=== PATIENT | male | born 1960 | race Hispanic/Latino ===

== ENCOUNTER 2017-02-07 00:35 | Emergency (ER) | payer MEDICARE, MEDICAID ==
[~2017-02-07] VITALS: Ht 177.8 cm; Wt 95.5 kg
[~2017-02-07 00:35] MED LIST: ASPI-628 PO; ATOR10TA66 PO; BACL10TA PO; CHOL500050 PO; CLOP75TA3 PO; DULO60CA42 PO; GABA-502 PO; INSLIS SUBQ; INSU100V7 SUBQ; LISI10TA2 PO; LORA0.5T PO; NAPR500T PO; OMEP-113 PO
[2017-02-07 00:39] VITALS: BP 122/71; PULSE 80; RESP 18; O2SAT 98
--- NOTE | 2017-02-07 02:03 | ED.REPORT ---
HPI-Dyspnea / Wheezing Date of Service Feb 07, 2017 ED Provider: Judd Aguilar DO A 56 year old male with a history of type II diabetes, stage III chronic kidney disease secondary to diabetes, hypertension and TIA presents to the ED complaining of a cough. The cough has been present for four days and is progressively worsening. The pt began experiencing lightheadedness, shortness of breath, neck pain, nausea and "spinning dizziness" tonight in addition to diaphoresis and rhinorrhea that began four hours ago. He also complains of bilateral rib pain secondary to coughing, though he denies neck stiffness, fever, abdominal pain, diarrhea, vomiting, syncope or falls. The pt has no history of asthma, COPD or smoking. Nursing Notes Stated Complaint: UNCONTROLLED COUGH,DIZZINESS Chief Complaint: FLU/Cold Symptoms Nursing Notes Reviewed: Yes Allergies: Coded Allergies: No Known Allergies (Verified Allergy, Unknown, 02/07/17) Scheduled Aspirin (Aspir 81) 81 Mg Tablet.dr 81 MG PO DAILY Atorvastatin Calcium (Atorvastatin Calcium) 10 Mg Tablet 10 MG PO HS Benzonatate (Benzonatate) 200 Mg Capsule 200 MG PO TID Cholecalciferol (Vitamin D3) (Vitamin D3) 50,000 Unit Capsule 50,000 UNIT PO QW Clopidogrel Bisulfate (Plavix) 75 Mg Tablet 75 MG PO DAILY Duloxetine (Cymbalta) 60 Mg Capsule.dr 60 MG PO HS Gabapentin (Gabapentin) 300 Mg Capsule 900 MG PO TID Insulin Glargine (Lantus U100 Insulin Vial) 100 Unit/Ml Vial 35 UNIT SUBQ QPM- INSULIN Insulin Human Lispro (HumaLOG U100 Insulin Vial) 100 Unit/Ml Unit Unknown Dose SUBQ TID-INSULIN Blood Sugar Lispro Correction <151 0 units 151-175 1 unit 176-200 2 units 201-225 3 units 226-250 4 units 251-275 5 units 276-300 6 units 301-325 7 units 326-350 8 units 351-375 9 units 376-400 10 units >400 12 units Check blood sugars before meals and at bedtime. Use correction factor only before meals. Lisinopril (Lisinopril) 10 Mg Tablet 10 MG PO DAILY Omeprazole Magnesium (Omeprazole) 20 Mg Capsule.dr 20 MG PO AC Scheduled PRN Baclofen (Baclofen) 10 Mg Tablet 10 MG PO TID PRN PRN For Pain Lorazepam (Lorazepam) 0.5 Mg Tablet 0.5 MG PO TID PRN PRN For Insomnia Naproxen (Naprosyn) 500 Mg Tablet 500 MG PO BID PRN PRN For Pain General Time Seen by MD: 01:31 Chief Complaint Cough Hx Obtained From: Patient Arrived By: Walk-in Sudden in Onset?: No Onset Occurred: 4 days ago Symptom Duration: Since onset Recent Healthcare: No recent doctor visit, No recent hospitalization Similar Sx Previous: No Past Medical History Past Medical History 1. Insulin-dependent type II diabetes mellitus. Neuropathy, nephropathy, and retinopathy. 2. Dyslipidemia, uncontrolled 3. Chronic pain 4. Insomnia 5. Stage III chronic kidney disease secondary to diabetes 6. Hypertension 7. TIA Past Surgical History bilateral foot surgery s/p fractures. Smoking History Never Smoker Social History Alcohol Use: Denies alcohol use Drug Use: Denies drug use Other Social History: Good social support Ambulatory Status Independent Review of Systems Review of Systems Note: rib pain secondary to cough denies neck stiffness Respiratory: Reports: Non-productive cough, Shortness of breath Cardiovascular: Denies: Chest pain Musculoskeletal: Reports: Neck pain, Denies: Back pain Skin: Reports Diaphoresis, Denies Rash Allergy / Immune: Reports: Rhinorrhea Complete sys rev & neg: except as marked. GI: Reports: Nausea, Denies: Abdominal pain, Diarrhea, Vomiting Neurologic: Reports: Dizziness, Lightheaded, Denies: Syncope Physical Exam Initial Vital Signs Vital Signs (First) Date Time Temp Pulse Resp B/P Pulse Ox O2 Delivery O2 Flow Rate FiO2 02/07/17 00:39 36.4 80 18 122/71 98 Room Air Initial VS: Reviewed General/Constitutional: Awake, Alert Neck: Atraumatic, Supple, Full range of motion Respiratory / Chest: Atraumatic, Breath sounds = bilat coarse wheeze active cough Cardiovascular: Heart rate NL, Regular rhythm, Heart sounds NL ENT: Atraumatic, Airway patent, Mucous membranes moist Abdomen: Atraumatic, Soft, Non-tender Back: Atraumatic, Full range of motion Lower Extremity / Pelvis / MS: Atraumatic, Full range of motion Skin: Atraumatic, Color NL, No rash, Warm diaphoretic Neurologic: Oriented X3, Speech NL, No motor deficits, No sensory deficits Head / Eyes: Atraumatic, Normocephalic, PERRL, EOMI Upper Extremity / MS: Atraumatic, Full range of motion Psychiatric: Affect NL, Mood NL Interpretation & Diagnostics Lab Results Interpretation Result Diagram: 02/07/17 0250 02/07/17 0250 Test 02/07/17 02:50 White Blood Count 11.2th/mm3 (3.8-10.1) Red Blood Count 5.16mil/mm3 (4.40-5.80) Hemoglobin 14.7g/dL (13.8-17.2) Hematocrit 42.2% (41.0-50.0) Mean Corpuscular Volume 81.8fL (81-100) Mean Corpuscular Hemoglobin 28.5pg (27.0-35.0) Mean Corpuscular Hemoglobin Concent 34.8% (32.0-37.0) Red Cell Distribution Width 13.2% (12.3-15.4) Platelet Count 214bil/L (150-400) Neutrophils (%) (Auto) 68.8% (40-74) Lymphocytes (%) (Auto) 15.3% (14-46) Monocytes (%) (Auto) 6.6% (4-12) Eosinophils (%) (Auto) 8.6% (0-5) Basophils (%) (Auto) 0.3% (0-3) D-Dimer < 0.50mg/L FEU (<0.50) Sodium Level 136mEq/L (134-144) Potassium Level 4.2mEq/L (3.5-5.2) Chloride Level 100mEq/L (97-108) Carbon Dioxide Level 20mmol/L (18-29) Blood Urea Nitrogen 28mg/dL (6-24) Creatinine 1.86mg/dL (0.76-1.27) Estimat Glomerular Filtration Rate 40mL/min (>59) Glucose Level 388mg/dL (60-99) Calcium Level 8.3mg/dL (8.5-10.1) Total Bilirubin 0.4mg/dL (0.0-1.2) Aspartate Amino Transf (AST/SGOT) 16U/L (0-50) Alanine Aminotransferase (ALT/SGPT) 18U/L (0-44) Alkaline Phosphatase 120U/L (25-150) Troponin T 0.010ug/L (0.0-0.011) Pro-B-Type Natriuretic Peptide 167.5pg/mL (0-121) Total Protein 6.4g/dL (6.4-8.4) Albumin 3.5g/dL (3.4-5.0) Hold Ramsey Top Tube Received (Received) Pulse Oximetry Interpretation Pulse Oximetry Interpretation: 98% on room air Pulse Oximetry: Pulse Ox normal ECG Interpretation ECG Interpretation: normal sinus rhythm with a rate of 71 no ischemia Time: 02:34 Interpreted by: ED physician X-Ray Chest Interpretation Chest Xray Interpretation: no lobar infiltrates inc bronchiole markings consistent with bronchiolitis Interpretation / Wet Read by: Wet read ED physician Re-Eval/Medical Decision Med Decision/Clinical Course 56-year-old male with severe cough interfering with sleep was initially evaluated by Dr. Aguilar chest x-ray showed no evidence of pneumonia or pneumothorax. Troponin and d-dimer were both negative. He got very good relief of his cough with Tessalon, [employer] prescription that was written for him. He was also given a small prepack of Lortab elixir for cough interfering with sleep. He was given azithromycin on the chance that this an atypical bacterial bronchitis or pertussis (doubtful). Source of Hx: Old records Re-Evaluation/Progress : Time of Eval: 04:27 Re-Evaluation/Progress Note: Rechecked pt. Discussed lab results, imaging results, diagnosis and plan to discharge. Pt understands and agrees with the plan. F/U instruction and RTER warning given. All questions addressed. Counseled Regarding: Diagnosis, Lab results, Need for follow-up, When/why to return to ED Discharge & Departure Shift Change Sign-Out Patient Care Transferred: Yes Discussed Complaint(s): Yes Laboratory Evaluation: Ordered, not yet done Imaging Studies: Imaging discussed Impression: Primary Impression: Cough Additional Impression: Bronchitis Disposition: Home Discharge Condition All VS Reviewed: Yes Condition: Stable Patient Instructions: Acute Bronchitis (ED) Additional Instructions: No evidence of serious illness like heart attack or pneumonia or blood clot in the lungs or collapsed lung. This is likely a viral bronchitis, but there are a couple of bacterial bronchitis that can cause severe cough like this so we will give you azithromycin 500 mg now and then 250 mg daily for 4 more days. Lortab elixir 2 teaspoons every 4-6 hours as needed for severe cough. Tessalon (benzonatate) perles, 200 mg, one pill 3 times a day as needed for cough, #15 prescribed. Referrals: Lynn Phillip MD (PCP) Care Transferred to: Dr. Reagan Care Transferred at: 03:00 Scribe Attestation Portions of this note were transcribed by Darinel Wing. I, Dr. Aguilar personally performed the history, physical exam and medical decision-making; I reviewed and confirmed the accuracy of the information in the transcribed note. copies to: Lynn Phillip MD, Judd Lockhart DO Feb 07, 2017 02:03 DARINEL WING Feb 07, 2017 02:11 Ema Bello Feb 07, 2017 04:30 Brant Reagan MD Feb 07, 2017 04:37
[2017-02-07] MEDS ORDERED: Albuterol-Ipratropium 3 mL Inhalation Solution NEB ONE (02:05)
[2017-02-07] MEDS ORDERED: MethylprednisoLONE Sodium Succinate 62.5 mg/mL 2 mL Inj IVPUSH ONE (02:05)
[2017-02-07] MEDS ORDERED: HYDROcodone-APAP 7.5-325 mg/15 mL 15 mL Solution PO ONE (02:10)
[2017-02-07 02:47] VITALS: PULSE 78; RESP 20; O2SAT 98
[2017-02-07 02:59] LABS: BASOPHILS % (AUTO) 0.3 % (0-3); EOSINOPHILS % (AUTO) 8.6 % (0-5); MONOCYTES % (AUTO) 6.6 % (4-12); Mean Corpuscular Hemoglobin 28.5 pg (27.0-35.0); Mean Corpuscular Volume 81.8 fL (81-100); NEUTROPHILS % (AUTO) 68.8 % (40-74); Platelet Count 214 bil/L (150-400)
[2017-02-07 03:34] LABS: TROPONIN T 0.01 ug/L (0.0-0.011)
[2017-02-07] MEDS ORDERED: _Azithromycin 250 mg Tablet PO SCH (04:40)
[2017-02-07] MEDS ORDERED: _HYDROcodone-APAP 7.5-325/15mL 1 mL Bottle PO PRN (04:40)
[2017-02-07] MEDS ORDERED: BENZ200C44 PO (04:57)
[2017-02-07 05:01] VITALS: BP 110/69; PULSE 76; RESP 18; O2SAT 95
--- NOTE | 2017-02-07 09:20 | DRSVH ---
PROCEDURE: X-RAY CHEST, TWO VIEWS ([id number]) INDICATIONS: cough TECHNIQUE: 2 views of the chest were acquired. COMPARISON: [facility], CR, XR CHEST 1VW (PORTABLE), 10/06/2015, 19:00. FINDINGS: Surgical changes and devices: None. Lungs and pleura: No pleural effusions or pneumothorax. Lungs are clear. Mediastinum: Mediastinal contours are normal. Heart size is normal. Bones and chest wall: No suspicious bony abnormalities. Soft tissues appear unremarkable. IMPRESSION: Expiratory chest demonstrating no definite acute cardiopulmonary process.. Dictated by: Edward Frias [facility] Interpreted: Puja Gandhi MD on 02/07/2017 at 9:18 Transcribed by: MELISA on 02/07/2017 at 9:19 Approved by: Puja Gandhi MD, PhD on 02/07/2017 at 11:11
== END 2017-02-07 05:02 | disposition home or self-care (01) ==
LOC: SED 00:35
DX: J40 Bronchitis, not specified as acute or chronic (principal); M54.2 Cervicalgia; E11.40 Type 2 diabetes mellitus with diabetic neuropathy, unspecified; E11.21 Type 2 diabetes mellitus with diabetic nephropathy; E11.319 Type 2 diabetes mellitus with unspecified diabetic retinopathy without macular edema; E11.22 Type 2 diabetes mellitus with diabetic chronic kidney disease; I12.9 Hypertensive chronic kidney disease with stage 1 through stage 4 chronic kidney disease, or unspecified chronic kidney disease; N18.3 Chronic kidney disease, stage 3 (moderate); Z86.73 Personal history of transient ischemic attack (TIA), and cerebral infarction without residual deficits; Z79.82 Long term (current) use of aspirin; Z79.4 Long term (current) use of insulin
CPT/HCPCS: 71020; 80053; 83880; 84484; 85025; 85378; 93005; 94664; 96374; 99285; J2930; J7620

== ENCOUNTER 2017-02-10 01:09 | Emergency (ER) | payer MEDICARE, MEDICAID ==
[~2017-02-10] VITALS: Ht 177.8 cm; Wt 95.5 kg
[~2017-02-10 01:09] MED LIST changes: +BENZ200C44 PO
[2017-02-10 01:13] VITALS: BP 146/77; PULSE 92; RESP 24; O2SAT 97
--- NOTE | 2017-02-10 01:35 | ED.REPORT ---
HPI-Dyspnea / Wheezing Date of Service Feb 10, 2017 ED Provider: Tha Chua MD Patient is a 56 year old male with a history of diabetes with neuropathy, stage 3 kidney disease and hypertension who presents to the ED complaining of a worsening cough for the past three days. Associated symptoms include diaphoresis. He denies fever. The patient reports that he now has yellow sputum. Patient has tries using the Tessalon that he was prescribed when he was seen here three days ago and reports that they have not been helped. He has also been taking the Azithromycin. Nursing Notes Stated Complaint: COUGH Chief Complaint: Respiratory Complaints Nursing Notes Reviewed: Yes Allergies: Coded Allergies: No Known Allergies (Verified Allergy, Unknown, 02/07/17) Scheduled Aspirin (Aspir 81) 81 Mg Tablet.dr 81 MG PO DAILY Atorvastatin Calcium (Atorvastatin Calcium) 10 Mg Tablet 10 MG PO HS Benzonatate (Benzonatate) 200 Mg Capsule 200 MG PO TID Cholecalciferol (Vitamin D3) (Vitamin D3) 50,000 Unit Capsule 50,000 UNIT PO QW Clopidogrel Bisulfate (Plavix) 75 Mg Tablet 75 MG PO DAILY Duloxetine (Cymbalta) 60 Mg Capsule.dr 60 MG PO HS Gabapentin (Gabapentin) 300 Mg Capsule 900 MG PO TID Insulin Glargine (Lantus U100 Insulin Vial) 100 Unit/Ml Vial 35 UNIT SUBQ QPM- INSULIN Insulin Human Lispro (HumaLOG U100 Insulin Vial) 100 Unit/Ml Unit Unknown Dose SUBQ TID-INSULIN Blood Sugar Lispro Correction <151 0 units 151-175 1 unit 176-200 2 units 201-225 3 units 226-250 4 units 251-275 5 units 276-300 6 units 301-325 7 units 326-350 8 units 351-375 9 units 376-400 10 units >400 12 units Check blood sugars before meals and at bedtime. Use correction factor only before meals. Lisinopril (Lisinopril) 10 Mg Tablet 10 MG PO DAILY Omeprazole Magnesium (Omeprazole) 20 Mg Capsule.dr 20 MG PO AC Scheduled PRN Baclofen (Baclofen) 10 Mg Tablet 10 MG PO TID PRN PRN For Pain Lorazepam (Lorazepam) 0.5 Mg Tablet 0.5 MG PO TID PRN PRN For Insomnia Naproxen (Naprosyn) 500 Mg Tablet 500 MG PO BID PRN PRN For Pain General Time Seen by MD: 01:30 Chief Complaint Cough Hx Obtained From: Patient Arrived By: Walk-in Sudden in Onset?: No Onset Occurred: 3 days ago Symptom Duration: Since onset Severity: Current: No pain currently Recent Healthcare: Recent doctor visit Similar Sx Previous: Yes Past Medical History Past Medical History 1. Insulin-dependent type II diabetes mellitus. Neuropathy, nephropathy, and retinopathy. 2. Dyslipidemia, uncontrolled 3. Chronic pain 4. Insomnia 5. Stage III chronic kidney disease secondary to diabetes 6. Hypertension 7. TIA Past Surgical History bilateral foot surgery s/p fractures. Smoking History Never Smoker Social History Alcohol Use: Denies alcohol use Drug Use: Denies drug use Other Social History: Good social support Ambulatory Status Independent Review of Systems Constitutional: Denies: Fever Respiratory: Reports: Prod cough, yellow Cardiovascular: Denies: Chest pain Skin: Reports Diaphoresis Complete sys rev & neg: except as marked. Physical Exam Initial Vital Signs Vital Signs (First) Date Time Temp Pulse Resp B/P Pulse Ox O2 Delivery O2 Flow Rate FiO2 02/10/17 01:13 37.2 92 24 146/77 97 Room Air Initial VS: Reviewed General/Constitutional: Awake, Alert Neck: Atraumatic, Supple Respiratory / Chest: Atraumatic, Breath sounds = bilat, No respiratory distress Wheezing / Retractions: Positive: Wheezing moderate Cardiovascular: Heart rate NL, Regular rhythm, Heart sounds NL, No gallop, No murmurs, No rubs Skin: Atraumatic, Color NL, No rash, Warm, Dry Neurologic: Oriented X3, Speech NL Head / Eyes: Atraumatic, Normocephalic Interpretation & Diagnostics Lab Results Interpretation Result Diagram: 02/10/17 0155 02/10/17 0155 Test 02/10/17 01:55 White Blood Count 9.1th/mm3 (3.8-10.1) Red Blood Count 5.00mil/mm3 (4.40-5.80) Hemoglobin 14.3g/dL (13.8-17.2) Hematocrit 40.9% (41.0-50.0) Mean Corpuscular Volume 81.8fL (81-100) Mean Corpuscular Hemoglobin 28.6pg (27.0-35.0) Mean Corpuscular Hemoglobin Concent 35.0% (32.0-37.0) Red Cell Distribution Width 13.0% (12.3-15.4) Platelet Count 212bil/L (150-400) Neutrophils (%) (Auto) 55.3% (40-74) Lymphocytes (%) (Auto) 23.2% (14-46) Monocytes (%) (Auto) 6.7% (4-12) Eosinophils (%) (Auto) 14.1% (0-5) Basophils (%) (Auto) 0.5% (0-3) Sodium Level 132mEq/L (134-144) Potassium Level 4.3mEq/L (3.5-5.2) Chloride Level 95mEq/L (97-108) Carbon Dioxide Level 19mmol/L (18-29) Blood Urea Nitrogen 43mg/dL (6-24) Creatinine 2.04mg/dL (0.76-1.27) Estimat Glomerular Filtration Rate 36mL/min (>59) Glucose Level 495mg/dL (60-99) Calcium Level 8.4mg/dL (8.5-10.1) Total Bilirubin 0.2mg/dL (0.0-1.2) Aspartate Amino Transf (AST/SGOT) 14U/L (0-50) Alanine Aminotransferase (ALT/SGPT) 19U/L (0-44) Alkaline Phosphatase 147U/L (25-150) Troponin T 0.010ug/L (0.0-0.011) Pro-B-Type Natriuretic Peptide 166.3pg/mL (0-121) Total Protein 6.6g/dL (6.4-8.4) Albumin 3.5g/dL (3.4-5.0) Hold Ramsey Top Tube Received (Received) X-Ray Chest Interpretation Chest Xray Interpretation: no acute disease Interpretation / Wet Read by: Wet read ED physician Re-Eval/Medical Decision Med Decision/Clinical Course 56-year-old male secondary to a visit in 3 days for cough. Cough is erupting with his sleep. Negative fever and there is no infiltrate on chest x-ray. He experienced good relief with albuterol, has only scattered wheezes, albuterol will be continued as an outpatient. I do not believe he has a bacterial infection but we will continue previously started azithromycin. We will not start him on oral steroids given his good reaction to the albuterol and his diabetes. Re-Evaluation/Progress #1: Time of Eval: 02:35 Patient Status: Condition improved Re-Evaluation/Progress Note: Discussed plan for discharge pending labs. Patient understands and agrees to plan. All questions were addressed. Re-Evaluation/Progress #2: Re-Evaluation/Progress Note: Advised patient of a limited blood sugar, and declining kidney functions. Suggested IV fluids, the patient would like to go home, he has a sliding scale insulin which he will use home. He will also get adequate fluids. Advised him this needs close follow-up with primary care. Counseled Regarding: Diagnosis, Lab results, Need for follow-up, When/why to return to ED Discharge & Departure Impression: Primary Impression: Cough Additional Impression: Reactive airway disease Asthma severity: mild intermittent Asthma complication type: with acute exacerbation Qualified Code: J45.21 - Mild intermittent asthma with (acute) exacerbation Disposition: Home Discharge Condition All VS Reviewed: Yes Condition: Improved Patient Instructions: Asthma (ED) Additional Instructions: Emergency department course included interview, examination, chest x-ray, labs and review of past records. Treatment with albuterol nebulizers for the cough seemed helpful. Continue previous medications including the azithromycin recently prescribed. Use albuterol 2 puffs every 4 hours as needed for cough and wheeze. follow up with primary care in 2-3 days Referrals: Lynn Phillip MD (PCP) Bhavin Attestation Portions of this note were transcribed by Bambi Barreto. I, Dr. Chua personally performed the history, physical exam and medical decision-making; I reviewed and confirmed the accuracy of the information in the transcribed note. Signed by: Bhavin Marquez, 02/09/17 copies to: Lynn Phillip MD, Donald L MD Feb 10, 2017 01:35 Darleen Barreto Feb 10, 2017 01:45
[2017-02-10] MEDS ORDERED: Albuterol-Ipratropium 3 mL Inhalation Solution NEB ONE (01:40)
[2017-02-10 01:51] VITALS: PULSE 88; RESP 18; O2SAT 98
[2017-02-10 02:06] LABS: BASOPHILS % (AUTO) 0.5 % (0-3); EOSINOPHILS % (AUTO) 14.1 % (0-5); MONOCYTES % (AUTO) 6.7 % (4-12); Mean Corpuscular Hemoglobin 28.6 pg (27.0-35.0); Mean Corpuscular Volume 81.8 fL (81-100); NEUTROPHILS % (AUTO) 55.3 % (40-74); Platelet Count 212 bil/L (150-400)
[2017-02-10 02:42] LABS: TROPONIN T 0.01 ug/L (0.0-0.011)
[2017-02-10] MEDS ORDERED: Albuterol HFA 200 Puff Inhaler (Vent Pts Only) INHALATION ONE (02:45)
[2017-02-10] MEDS ORDERED: Albuterol HFA 200 Puff Inhaler (Vent Pts Only) INHALATION SCH (02:45)
[2017-02-10] MEDS ORDERED: Albuterol HFA 200 Puff Inhaler (Vent Pts Only) INHALATION PRN (02:45)
[2017-02-10 03:23] VITALS: BP 121/65; PULSE 92; RESP 20; O2SAT 95
--- NOTE | 2017-02-10 07:35 | DRSVH ---
PROCEDURE: X-RAY CHEST, TWO VIEWS ([id number]) INDICATIONS: cough TECHNIQUE: 2 views of the chest were acquired. COMPARISON: [facility], CR, XR CHEST 2VW, 02/07/2017, 2:18. [facility], CR, XR CHEST 1VW (PORTABLE), 10/06/2015, 19:00. FINDINGS: Surgical changes and devices: None. Lungs and pleura: No pleural effusions or pneumothorax. Peribronchial cuffing is present bilaterally . Mediastinum: Mediastinal contours are normal. Heart size is normal. Bones and chest wall: No suspicious bony abnormalities. Soft tissues appear unremarkable. IMPRESSION: Findings consistent with bronchitis. No focal pneumonia. Dictated by: Daina Yuen M.D. on 02/10/2017 at 7:33 Approved by: Daina Yuen M.D. on 02/10/2017 at 7:34
== END 2017-02-10 03:24 | disposition home or self-care (01) ==
LOC: SED 01:09
DX: J45.21 Mild intermittent asthma with (acute) exacerbation (principal); R61 Generalized hyperhidrosis; I12.9 Hypertensive chronic kidney disease with stage 1 through stage 4 chronic kidney disease, or unspecified chronic kidney disease; E11.22 Type 2 diabetes mellitus with diabetic chronic kidney disease; N18.3 Chronic kidney disease, stage 3 (moderate); E11.21 Type 2 diabetes mellitus with diabetic nephropathy; E11.319 Type 2 diabetes mellitus with unspecified diabetic retinopathy without macular edema; E78.5 Hyperlipidemia, unspecified; Z86.73 Personal history of transient ischemic attack (TIA), and cerebral infarction without residual deficits; Z87.81 Personal history of (healed) traumatic fracture; Z79.82 Long term (current) use of aspirin; Z79.4 Long term (current) use of insulin
CPT/HCPCS: 36415; 71020; 80053; 83880; 84484; 85025; 94640; 94664; 99285; J7620